=== PATIENT | female | born 1985 ===

== ENCOUNTER 2017-02-16 21:02 | Emergency (ER) | payer SELFPAY ==
[2017-02-16 21:23] VITALS: BP 135/76; PULSE 84; RESP 16; TEMP 98.3; O2SAT 99
--- NOTE | 2017-02-16 21:58 | ED PDOC ---
Lower Extremity Pain/Injury Time Seen by Provider: 02/16/17 21:39 Chief Complaint (Nursing): Lower Extremity Problem/Injury Chief Complaint (Provider): Lower Extremity Problem/Injury History Per: Patient History/Exam Limitations: no limitations Onset/Duration Of Symptoms: Days (x15) Additional Complaint(s): Barbara Rutherford, 31 year old female presents to the ED on 02/16/17 after experiencing atraumatic knee pain for 15 days prior to arrival. The patient reports worsening pain when she walks or dangles her legs. She denies any fever , chills, nausea, vomiting, recent travel, swelling, erythema, bug bites, recent outdoor activities, shortness of breath, or chest pain. Past Medical History Reviewed: Historical Data, Nursing Documentation, Vital Signs Vital Signs: Last Vital Signs Temp 98.3 F 02/16/17 21:20 Pulse 84 02/16/17 21:20 Resp 16 02/16/17 21:20 BP 135/76 02/16/17 21:20 Pulse Ox 99 02/16/17 21:20 - Medical History PMH: No Chronic Diseases - Family History Family History: States: Unknown Family Hx - Home Medications Home Medications: Ambulatory Orders Medication Instructions Recorded Dicyclomine [Bentyl] 10 mg PO QID PRN #10 cap 05/27/16 Naproxen 500 mg PO BID #30 tablet. 02/16/17 - Allergies Allergies/Adverse Reactions: Allergies Allergy/AdvReac Type Severity Reaction Status Date / Time No Known Allergies Allergy Verified 07/30/14 19:06 Review of Systems ROS Statement: Except As Marked, All Systems Reviewed And Found Negative Constitutional: Negative for: Fever, Chills Cardiovascular: Negative for: Chest Pain Respiratory: Negative for: Shortness of Breath Gastrointestinal: Negative for: Nausea, Vomiting Musculoskeletal: Positive for: Leg Pain (bilateral knee pain ). Negative for: Other (no swelling or erythema to bilateral knees) Physical Exam - Reviewed Nursing Documentation Reviewed: Yes Vital Signs Reviewed: Yes - Physical Exam Appears: Positive for: Non-toxic, No Acute Distress Head Exam: Positive for: ATRAUMATIC, NORMOCEPHALIC Extremity: Positive for: Normal ROM (to bilateral knees ), Tenderness (to superior aspect bilaterally ), Capillary Refill (good palpable/pedal pulses ), Swelling (mild swelling to bilateral knees; no warmth ). Negative for: Other ( no effusion; no skin changes) Neurologic/Psych: Positive for: Alert, Oriented (x3) - ECG O2 Sat by Pulse Oximetry: 99 (RA) Pulse Ox Interpretation: Normal - Radiology X-Ray: Interpreted by Me X-Ray Interpretation: No Acute Disease Medical Decision Making Medical Decision Making: Initial Impression: Bilateral atraumatic knee pain Initial Plan: * Knee 3 Views Bi [RAD] Stat * treatment: Xray: negative for obvious bony lesions, fx or disclocation Pt strongly advised to have pmd f/u to r/o autoimmune issues in pt who is otherwise health with atruamatic b/l knee pain. pt understands and agrees. Scribe Attestation: Documented by Ofelia Rivera, acting as a scribe for Julia Hannah PA-C. Provider Scribe Attestation: All medical record entries made by the Scribe were at my direction and personally dictated by me. I have reviewed the chart and agree that the record accurately reflects my personal performance of the history, physical exam, medical decision making, and the department course for this patient. I have also personally directed, reviewed, and agree with the discharge instructions and disposition. Disposition - Clinical Impression Clinical Impression: Knee pain - Patient ED Disposition Is Patient to be Admitted: No Counseled Patient/Family Regarding: Diagnosis, Need For Followup, Rx Given - Disposition Disposition: Routine/Home Disposition Time: 22:23 Condition: STABLE Prescriptions: Naproxen 500 mg PO BID #30 tablet. Instructions: Arthralgia (ED), Patellofemoral Pain Syndrome (ED) Print Language: LEBANESE
--- NOTE | 2017-02-17 10:08 | RAD ---
PROCEDURE: Bilateral Knee Radiographs. HISTORY: b/l knee pain./swelling a traumatic x15d COMPARISON: None. FINDINGS: BONES: Right Knee: Normal. No fracture. Left Knee: Normal. No fracture. JOINTS: Right Knee: Normal. No osteoarthritis. Left knee: Normal. No osteoarthritis. SOFT TISSUES: Right Knee: Mild soft tissue swelling Left Knee: Mild soft tissue swelling. JOINT EFFUSION: Right Knee: None. Left Knee: None. OTHER FINDINGS: None. IMPRESSION: No evidence of acute pathology in the osseous structures of the knees. Mild soft tissue swelling.
== END 2017-02-16 22:43 | disposition home or self-care (01) ==
LOC: H.ER 21:02
DX: M25.561 Pain in right knee (principal); M25.562 Pain in left knee

== ENCOUNTER 2017-10-31 08:41 | Emergency (ER) | payer OTHER ==
[2017-10-31 08:46] VITALS: TEMP 98; O2SAT 100; BMI 25.5
[2017-10-31] MEDS ORDERED: Sodium Chloride 0.9% 1,000 ML IV STA (09:25)
--- NOTE | 2017-10-31 09:28 | ED PDOC ---
HPI: Female Pain Time Seen by Provider: 10/31/17 08:50 Chief Complaint (Nursing): Female Genitourinary Chief Complaint (Provider): Vaginal bleeding History Per: Patient History/Exam Limitations: no limitations Onset/Duration Of Symptoms: Days (5) Additional Complaint(s): Pt reports vaginal bleeding X 5 days, used ~4 pads/day, LMP 10/18/17. Denies nausea, vomiting, abdominal pain, CP, SOB. Abnormal Vaginal Bleeding: Yes Past Medical History Reviewed: Nursing Documentation, Vital Signs Vital Signs: Last Vital Signs Temp 98 F 10/31/17 08:45 Pulse 94 H 10/31/17 08:45 Resp BP 114/77 10/31/17 08:45 Pulse Ox 100 10/31/17 08:45 - Medical History PMH: No Chronic Diseases - Surgical History Surgical History: No Surg Hx - Family History Family History: States: Unknown Family Hx - Living Arrangements Living Arrangements: With Family - Social History Current smoker - smoking cessation education provided: No Alcohol: None - Immunization History Hx Tetanus Toxoid Vaccination: No Hx Influenza Vaccination: No Hx Pneumococcal Vaccination: No - Home Medications Home Medications: Ambulatory Orders Medication Instructions Recorded No Known Home Med 07/19/17 - Allergies Allergies/Adverse Reactions: Allergies Allergy/AdvReac Type Severity Reaction Status Date / Time No Known Allergies Allergy Verified 07/19/17 11:22 Review of Systems Constitutional: Negative for: Fever, Chills Cardiovascular: Negative for: Chest Pain Respiratory: Negative for: Cough, Shortness of Breath Gastrointestinal: Negative for: Nausea, Vomiting, Abdominal Pain Genitourinary Female: Positive for: Vaginal Bleeding. Negative for: Dysuria, Hematuria, Vaginal Discharge, Pelvic Pain Musculoskeletal: Negative for: Back Pain Skin: Negative for: Rash, Lesions Neurological: Positive for: Dizziness. Negative for: Headache Physical Exam - Reviewed Nursing Documentation Reviewed: Yes Vital Signs Reviewed: Yes - Physical Exam Appears: Positive for: Well, No Acute Distress Skin: Positive for: Normal Color, Warm, Dry Eye Exam: Positive for: Normal appearance, EOMI, PERRL Cardiovascular/Chest: Positive for: Regular Rate, Rhythm Respiratory: Positive for: Normal Breath Sounds. Negative for: Rales, Rhonchi, Wheezing Gastrointestinal/Abdominal: Positive for: Normal Exam, Bowel Sounds, Soft. Negative for: Tenderness Back: Positive for: Normal Inspection Extremity: Positive for: Normal ROM Neurologic/Psych: Positive for: Alert, Oriented - Laboratory Results Result Diagrams: 10/31/17 10:13 10/31/17 10:13 - ECG O2 Sat by Pulse Oximetry: 100 Medical Decision Making Medical Decision Makin yo female with abnormal vaginal bleeding. - labs - pelvic ultrasound Accession No. : [id number] Patient Name / ID : ANTOINETTE RICHEY / [id number] Exam Date : 10/31/2017 11:01:40 ( Approved ) Study Comment : Sex / Age : F / 32Y Creator : Sherman Mancilla MD Dictator : Sherman Mancilla MD Box Finisher : Test Rider : Sherman Mancilla MD Approver2 : Report Date : 10/31/2017 12:06:48 My Comment : HISTORY: Menorrhagia COMPARISON: None available. TECHNIQUE: Ultrasound of the pelvis was performed using transabdominal and transvaginal technique with longitudinal and transverse projections submitted for interpretation. FINDINGS: UTERUS: Measures 6.2 x 3.5 x 4.3 cm. Uterus is normal in size with moderate anteversion noted. No fibroid or other mass lesion seen. ENDOMETRIUM: Measures 6.0 mm in diameter. Unremarkable. CERVIX: No cervical abnormality identified. RIGHT OVARY: Measures 2.7 x 1.6 x 2.6 cm. No solid mass. Normal flow. There is a likely creating follicle appreciated at the posterior margins of the right ovary measure 1.3 x 10.5 x 0.9 cm. LEFT OVARY: Measures 2.0 x 1.1 x 1.8 cm. No solid mass. Normal flow. 1.3 x 0.8 x 1.0 cm simple appearing cyst identified in the left ovary. FREE FLUID: No significant free fluid noted. OTHER FINDINGS: None. IMPRESSION: Unremarkable uterus cervix and endometrium. Probable cranium follicle right ovary with a more simple appearing cyst identified in the left ovary. Disposition - Clinical Impression Clinical Impression: Abnormal vaginal bleeding - Disposition Referrals: [facility] [Outside] [facility] [place] [Outside] Disposition: Routine/Home Disposition Time: 12:10 Condition: STABLE Instructions: Absent or Irregular Periods Forms: [facility] (Niuean) Print Language: CHINESE
[2017-10-31 10:22] LABS: BASO # 0.1 K/uL (0.0-0.2); BASO % 0.7 % (0.0-2.0); EOS % 0.3 % (0.0-4.0); LYMPH # 1.8 K/uL (1.0-4.3); LYMPH % 20.6 % (20.0-40.0); MEAN CELL VOLUME 90.4 fl (81.0-99.0); MEAN CORPUSCULAR HEMOGLOBIN 32.1 pg (27.0-31.0); MEAN CORPUSCULAR HGB CONC 35.5 g/dL (33.0-37.0); MEAN PLATELET VOLUME 7.8 fl (7.2-11.7); MONO # 0.7 K/uL (0.0-0.8); MONO % 8.6 % (0.0-10.0); NEUT # 6.1 K/uL (1.8-7.0); NEUT % 69.8 % (50.0-75.0); NRBC % 0.1 % (0.0-0.0); RBC 4.36 Mil/uL (3.80-5.20); RED CELL DISTRIBUTION WIDTH 13.2 % (11.5-14.5); WHITE BLOOD COUNT 8.7 K/uL (4.8-10.8)
[2017-10-31 10:33] LABS: PARTIAL THROMBOPLASTIN TIME 34.6 Seconds (25.6-37.1); PROTHROMBIN TIME 10.9 Seconds (9.8-13.1)
[2017-10-31 10:36] LABS: ALB/GLOB RATIO 1.2 (1.0-2.1); ALBUMIN 4.2 g/dL (3.5-5.0); ALT/SGPT 43 U/L (9-52); AST/SGOT 30 U/L (14-36); BLOOD UREA NITROGEN 11 mg/dl (7-17); CALCIUM 9.1 mg/dL (8.4-10.2); GFR AFRICAN-AMERICAN > 60; GFR NON-AFRICAN AMERICAN > 60
--- NOTE | 2017-10-31 12:08 | US ---
HISTORY: Menorrhagia COMPARISON: None available. TECHNIQUE: Ultrasound of the pelvis was performed using transabdominal and transvaginal technique with longitudinal and transverse projections submitted for interpretation. FINDINGS: UTERUS: Measures 6.2 x 3.5 x 4.3 cm. Uterus is normal in size with moderate anteversion noted. No fibroid or other mass lesion seen. ENDOMETRIUM: Measures 6.0 mm in diameter. Unremarkable. CERVIX: No cervical abnormality identified. RIGHT OVARY: Measures 2.7 x 1.6 x 2.6 cm. No solid mass. Normal flow. There is a likely creating follicle appreciated at the posterior margins of the right ovary measure 1.3 x 10.5 x 0.9 cm. LEFT OVARY: Measures 2.0 x 1.1 x 1.8 cm. No solid mass. Normal flow. 1.3 x 0.8 x 1.0 cm simple appearing cyst identified in the left ovary. FREE FLUID: No significant free fluid noted. OTHER FINDINGS: None. IMPRESSION: Unremarkable uterus cervix and endometrium. Probable cranium follicle right ovary with a more simple appearing cyst identified in the left ovary.
[2017-10-31 13:11] VITALS: BP 121/60; PULSE 78; RESP 18
== END 2017-10-31 13:13 | disposition home or self-care (01) ==
LOC: H.ER 08:41
DX: N92.0 Excessive and frequent menstruation with regular cycle (principal)
CPT/HCPCS: 76830; 76856; 80053; 81025; 85025; 85610; 85730; 99284; J7040

== ENCOUNTER 2018-07-25 21:11 | Emergency (ER) | payer SELFPAY ==
[2018-07-25 21:55] VITALS: BMI 24.2
[2018-07-25] MEDS ORDERED: Lactated Ringer's 1,000 ML IV SCH (22:00)
[2018-07-25 22:14] LABS: BASO % 0.3 % (0.0-2.0); EOS % 0.1 % (0.0-4.0); HEMOGLOBIN 12.7 g/dL (12.0-16.0); LYMPH # 0.9 K/uL (1.0-4.3); LYMPH % 6.6 % (20.0-40.0); MEAN CELL VOLUME 92.7 fl (81.0-99.0); MEAN CORPUSCULAR HEMOGLOBIN 33.2 pg (27.0-31.0); MEAN CORPUSCULAR HGB CONC 35.8 g/dL (33.0-37.0); MEAN PLATELET VOLUME 7.4 fl (7.2-11.7); MONO # 0.8 K/uL (0.0-0.8); NEUT # 12.2 K/uL (1.8-7.0); PLATELET COUNT 267 K/uL (130-400); RBC 3.84 Mil/uL (3.80-5.20); RED CELL DISTRIBUTION WIDTH 14.2 % (11.5-14.5)
[2018-07-25 22:24] LABS: ALB/GLOB RATIO 1.1 (1.0-2.1); ALBUMIN 3.5 g/dL (3.5-5.0); ALT/SGPT 22 U/L (9-52); AST/SGOT 25 U/L (14-36); BLOOD UREA NITROGEN 9 mg/dl (7-17); CALCIUM 8.8 mg/dL (8.4-10.2); GFR NON-AFRICAN AMERICAN > 60; LIPASE 122 U/L (23-300)
--- NOTE | 2018-07-25 23:04 | OBHP ---
Datetime: 07/25/2018 22:58 IP Adm Impression: , intrauterine IP Chief Complaint Other: N/V/abdominal pain IP Admit Plan: Observation/Evaluation; Discharge home Admit Comment, IP Provider: Patient is a @ 30.2 wks with N/V/abdominal pain for past 5 hours . Patient reports she ate hebrew food at 2pm and at 5 pm started to have abdominal pain and had 4 ep isodes of nausea/vomiting. No vaginal bleeding, no leaking, +FM, no contractions just generalized abd ominal discomfort. No antepartum issues, previous , no medical/surgical history, no allergies, no medication. FHR = 125 mod tanya, +accels, no decels, no contractions on monitor, VSS. CBC/CMP/lipase d rawn, pt kept NPO and given Zofran/Pepcid. IVF given. WBC = 14, pt has no fever. CMP shows dehydratio n - pt has improved symptomatically and PO challenged. Patient tolerated PO diet. Will discharge dwight ent home, labor precations given and reasons to return to hospital discussed. All questions answered. Pelvic Type - PN: Adequate Extremities - PN: Normal Abdomen - PN: Normal Back - PN: Normal Breast - PN: Normal Lungs - PN: Normal Heart - PN: Normal Thyroid - PN: Normal Neurologic - PN: Normal HEENT - PN: Normal General - PN: Normal FHR - Baseline A Provider: 125 Vital Signs Provider: Reviewed; Within Normal Limits NICHD Variability Prov Fetus A: Moderate 6-25bpm NICHD Accel Fetus A IP Provider: 15X15 NICHD Decel Fetus A IP Provider: None Genitourinary Exam: Normal DTRs - PN: Normal
--- NOTE | 2018-07-25 23:07 | OBDCSUM ---
Datetime: 07/25/2018 23:03 Discharged to, Provider: Home Follow up at, Provider: primary OB Disch Instr Activity: Normal activity Disch Instr Diet: Regular Discharge Instructions, Provider: Routine instructions given Discharge Time: 07/25/2018 23:03 Follow up in weeks, Provider: 2 wks Disch Referrals: None Contraception discussed, Prov: No Discharge Diagnosis Prov Other: N/V/abdominal pain
[2018-07-26 00:58] LABS: LYMPHOCYTE 4 % (20-50); MONOCYTE 4 % (0-10); NEUTROPHIL 92 % (42-75); PLATELET ESTIMATE NORMAL (NORMAL); TOTAL CELLS COUNTED 100
[2018-07-26 00:59] LABS: ANISOCYTOSIS SLIGHT; POIKILOCYTOSIS SLIGHT
[2018-07-26 01:00] LABS: OVALOCYTES SLIGHT; TEARDROP CELLS SLIGHT
[2018-07-26 07:04] VITALS: BP 103/48; PULSE 83; RESP 18; TEMP 98.7; O2SAT 99
== END 2018-07-25 23:45 | disposition home or self-care (01) ==
LOC: H.EROB2 21:11
DX: O26.93 Pregnancy related conditions, unspecified, third trimester (principal); R10.2 Pelvic and perineal pain; O21.0 Mild hyperemesis gravidarum; Z3A.30 30 weeks gestation of pregnancy
CPT/HCPCS: 80053; 83690; 85025; 96361; 96374; 96375; 99283; J2405; J7120

== ENCOUNTER 2018-09-24 20:02 | Inpatient (IN) | payer MEDICAID, SELFPAY ==
[2018-09-24 20:28] VITALS: BMI 25.0
[2018-09-24] MEDS ORDERED: Lactated Ringer's 1,000 ML IV ONE (20:52)
[2018-09-24] MEDS ORDERED: Oxytocin 30 UNIT 30 UNITS/500 ML BAG IV ONE (20:55)
[2018-09-24] MEDS ORDERED: OXYTOCIN/0.9 % NS 20 UNIT/1,000 ML BAG IV SCH (21:00)
[2018-09-24 21:31] LABS: BASO % 0.4 % (0.0-2.0); EOS # 0.1 K/uL (0.0-0.7); EOS % 0.7 % (0.0-4.0); HEMOGLOBIN 12.2 g/dL (12.0-16.0); LYMPH # 2.6 K/uL (1.0-4.3); MEAN CELL VOLUME 94.4 fl (81.0-99.0); MEAN CORPUSCULAR HEMOGLOBIN 32.6 pg (27.0-31.0); MEAN CORPUSCULAR HGB CONC 34.6 g/dL (33.0-37.0); MEAN PLATELET VOLUME 8.2 fl (7.2-11.7); MONO # 0.6 K/uL (0.0-0.8); MONO % 6.9 % (0.0-10.0); NEUT # 5.1 K/uL (1.8-7.0); NRBC % 0.2 % (0.0-0.0); RBC 3.75 Mil/uL (3.80-5.20); RED CELL DISTRIBUTION WIDTH 14.2 % (11.5-14.5); WHITE BLOOD COUNT 8.3 K/uL (4.8-10.8)
--- NOTE | 2018-09-24 23:03 | OBHP ---
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 Patient follows up with Dr. Langston and Dr. Crook and has chorioan gioma. Barbara LOF, VB. Irregular CTx. endorses good FM. Denies F/C/N/V/D/CP/SOB. course: chorioangioma and worsening lagging HC/BPD 2-3+ wks on US 09/16/18, for BPP/NST and IOL @ 39 wks per MFM PMHx: Denies PSHx: Denies Allergies: NKDA Medications: PNVs F/H: Non contributory Social Hx: Denies ETOH/Smoking/drugs PE GEN: NAD Chest: RRR, S1S2 present Lungs: CTAB Abdomen: +BS, NT, Gravid Ext: No pedal edema, No calf tenderness SVE: Fingertip/20%/-2 A/P: 32 y/o , 39.1 wks based on MP with DAVIDSON of 09/30/18 presents to L_D for IOL @ 39Wk for chor ioangioma -EFM and [place] monitoring - labs: GBS Neg, HIV neg, RPR, neg, GC/Chl neg, Rubella immune, HBsAg Neg, TTdap 08/05/18 -Initiate labor induction protocol -LR 999 and 125 ml/hr -SVE: Fingertip/20%/-2 -Bishops score 2 -Cervidil indution -Monitor for cervical changes Sekou Cameron, PGY1. Attending Note: Patient was discussed with the resident and I agree with the resident Pelvic Type - PN: Not Done Extremities - PN: Normal Abdomen - PN: Normal Back - PN: Normal Breast - PN: Not Done Lungs - PN: Normal Heart - PN: Normal Thyroid - PN: Not Done Neurologic - PN: Normal HEENT - PN: Normal General - PN: Normal Presentation-Admit: Vertex FHR - Baseline A Provider: 135 Contraction Comments Provider: Irregular Gestation - Est Wks by US: 39.1 IP Hx Assessment: The History has been Reviewed and is Current EGA AdmitDate IP: 39.0 IP Indication for Induction: Other IP Indication for Induction Oth: Chorioangioma IP Chief Complaint: Scheduled induction of labor NICHD Variability Prov Fetus A: Moderate 6-25bpm NICHD Accel Fetus A IP Provider: 15X15 FHR Category Provider Fetus A: Category I NICHD Decel Fetus A IP Provider: None Dilatation, Provider: Radha Effacepepper, Provider: 30% Station, Provider: -2 Genitourinary Exam: Normal DTRs - PN: Not Done
[2018-09-25] MEDS: Lactated Ringer's 1,000 ML IV SCH ×3 (02:52→19:00)
[2018-09-25] MEDS ORDERED: Oxytocin 30 UNIT 30 UNITS/500 ML BAG IV ONE (10:40)
[2018-09-25] MEDS ORDERED: Fentanyl/Bupivacaine HCl 250 ML EPI ONE (15:33)
[2018-09-25] MEDS ORDERED: Lactated Ringer's 1,000 ML IV SCH (16:15)
[2018-09-25] MEDS ORDERED: Benzocaine/Menthol SPRAY TOP PRN ×2 (20:31→23:30)
[2018-09-25] MEDS ORDERED: Oxycodone/Acetaminophen 5/325 mg Tab PO PRN ×2 (20:31→23:30)
[2018-09-26 07:37] LABS: BASO # 0.1 K/uL (0.0-0.2); BASO % 0.4 % (0.0-2.0); EOS # 0.1 K/uL (0.0-0.7); EOS % 0.7 % (0.0-4.0); HEMOGLOBIN 11.1 g/dL (12.0-16.0); LYMPH # 2.7 K/uL (1.0-4.3); LYMPH % 21.5 % (20.0-40.0); MEAN CELL VOLUME 92.7 fl (81.0-99.0); MEAN CORPUSCULAR HEMOGLOBIN 32.3 pg (27.0-31.0); MEAN CORPUSCULAR HGB CONC 34.8 g/dL (33.0-37.0); MEAN PLATELET VOLUME 7.7 fl (7.2-11.7); MONO # 0.9 K/uL (0.0-0.8); MONO % 6.7 % (0.0-10.0); NEUT % 70.7 % (50.0-75.0); RBC 3.44 Mil/uL (3.80-5.20); RED CELL DISTRIBUTION WIDTH 14.6 % (11.5-14.5); WHITE BLOOD COUNT 12.7 K/uL (4.8-10.8)
--- NOTE | 2018-09-27 10:44 | OBPPN ---
Datetime: 09/27/2018 07:20 PP Pain Prov: Within normal limits PP Flatus Prov: Yes PP BM Prov: Yes PP Breasts Prov: Not Done PP Heart Prov: Normal PP Lungs Prov: Normal PP Abdomen/Uterus Prov: Normal PP Lochia Prov: Normal PP Vulva/Perineum Prov: Not Done PP CVA Tenderness Prov: Not Done PP Extremities Prov: Normal PP C/S Incision Prov: Not Applicable PP Progress Prov: Normal PP Impression Prov: Normal progression PP Plan Prov: Discharge PP Progress Note Prov: S:32 YO s/p Vaginal delivery after IOL, today on her PPD2. Seen and examined at bedside. No complaints at this time. w/o difficulties, ambulating, tolerating PO. O: VS WNL GEN: NAD HEENT: NCAT RESP: CTA b/l, no wheezing CV: RRR, S1 S2 present normally, no murmurs. ABDM: BS+, soft, no tenderness to palpation, uterus noted firm 1 inch below umbilicus. LE: Edema 1+, no calf tenderness A/P 32 YO s/p Vaginal delivery after IOL, today on her PPD2 with normal PP progression. Plan: -Continue present management -Ambulation encouraged - encouraged -Pain management: Acetaminophen 650 PO Q4h PRN for pain -DC planning for today[facility] Albert: I have evaluated the patient independently and I agree with the above Vital Signs Provider PP: Reviewed; Within Normal Limits Datetime: 09/26/2018 07:51 PP Nausea Prov: Denies PP Comments Phys Exam Prov: see progress note
--- NOTE | 2018-09-27 10:51 | OBDCSUM ---
Datetime: 09/27/2018 07:26 Discharged to, Provider: Home Follow up at, Provider: [facility] Disch Instr Activity: Normal activity Disch Instr Diet: Regular Discharge Instructions, Provider: Routine instructions given Discharge Diagnosis, Provider: Term Delivered Discharge Time: 09/27/2018 10:00 Follow up in weeks, Provider: 4-6 weeks Disch Referrals: None Contraception discussed, Prov: Yes Disch Activity Restrictions: No sexual activity; Nothing in vagina - [place], tampons, douche Discharge Comment, Provider: Diagnosis: 32 y/o s/p of a baby boy on 09/25/2018w w/ EGA: 38.1 weeks at time of delivery : Male, Wt. 3210 gm, 9/9. Post- D/C Summary: No OB complications. No complications during post- period. Lochia i s less than menses. Pt able to pass flatus and stool, voiding well and able to ambulate. Tolerate reg ular diet w/o N/V. Fundus firm below umbilicus level. Pt is hemodynamically stable. H/H : 11.1/31.8 Discharge Instructions given to patient: Encourage PNV 1 tab PO daily May take Ibuprofen 400mg OTC Q 6h prn for mild-mod pain if needed ED precautions: If excessive bleeding, pain that does not get relief, fever >100.4, palpitations, SOB, CP or other concerning symptom go to the ED PT was urged if feeling sad, mood swing, depression, neglect of baby, suicidal thoughts, homicidal thoughts go to ER or call 911 for help Pt should go to her Primary care doctor if have difficulty with breast feeding F/U in 4-6 week for PP visit with PMD. Contraception after Delivery: Undecided
--- NOTE | 2018-09-27 13:46 | OBDS ---
DELIVERY PERSONNEL Delivery Doctor: Ervin Arellano MD Permit Technician: Kayla Goel RN Anesthesiologist: Cintia Oconnor MATERNAL INFORMATION Delivery Anesthesia: Epidural Medications in Delivery: Pitocin Estimated Blood Loss (ml): 50 Placenta Cultured: No Maternal Complications: None Provider Comments: Uncomplicated Spontaneous Delivery of a viable male infant with scores of 9 and 9, delivered in cephalic presentation in the DIANE. EBL- 200mls Placenta delivered spontaneously, placenta seemed complete and no additional tissue seen. ? 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 Patient tolerated the procedure well. LABOR SUMMARY EDC: 10/01/2018 00:00 No. Babies in Womb: 1 Attempted: No Labor Anesthesia: Epidural LABOR INFORMATION Reason for Induction: Intrauterine Growth Retardation Complete Dilatation: 09/25/2018 19:28 Cervical Ripening Agents: Cervidil Oxytocin: Augmentation Group B Beta Strep: Negative Antibiotics # of Doses: n/a Antibiotics Time of Last Dose: n/a Steroids Given: None Reason Steroids Not Administered: Not Applicable MEMBRANES Membranes Rupture Method: Artificial Rupture of Membranes: 09/25/2018 17:15 Length of Rupture (hrs): 2.38 Amniotic Fluid Color: Clear Amniotic Fluid Amount: Small Amniotic Fluid Odor: Normal STAGES OF LABOR Stage 2 hrs: 0 Stage 2 min: 10 VAGINAL DELIVERY Episiotomy: None Laceration Extension: N/A Laceration Type: None Laceration Repair: Not Applicable Initial Vag Sponge Count: 15 Final Vag Sponge Count: 15 Sponge Count Correct: Yes Sharps Count Correct: N/A BABY A INFORMATION Delivery Date/Time: 09/25/2018 19:38 Method of Delivery: Vaginal Born in Route : No : N/A Forceps: N/A Vacuum Extraction: N/A Shoulder Dystocia : No SHOULDER DYSTOCIA BABY A Delivery Date/Time: 09/25/2018 19:38 PRESENTATION/POSITION BABY A Presentation: Cephalic Cephalic Presentation: Vertex PLACENTA INFORMATION BABY A Placenta Method of Delivery: Spontaneous Placenta Status: Delivered SCORES BABY A Heart Rate 1 min: >100 bpm Resp Effort 1 min: Good Cry Reflex Irritability 1 min: Cough or Sneeze or Pulls Away Muscle Tone 1 min: Active Motion Color 1 min: Body [place], Extremities Blue Resuscitation Effort 1 min: Tactile Stimulation SCORE 1 MIN: 9 Heart Rate 5 min: >100 bpm Resp Effort 5 min: Good Cry Reflex Irritability 5 min: Cough or Sneeze or Pulls Away Muscle Tone 5 min: Active Motion Color 5 min: Body [place], Extremities Blue Resuscitation Effort 5 min: N/A SCORE 5 MIN: 9 INFANT INFORMATION BABY A Gestational Age at Delivery: 39.1 Gestational Status: Term Outcome : Liveborn Infant Condition : Stable Infant Sex: Male IDENTIFICATION/MEDS BABY A ID Band Number: [id number] ID Band Location: Left Leg; Left Arm WEIGHT/LENGTH BABY A Birthweight (gms): 3210 Weight (lb): 7 Infant Weight (oz): 1 CORD INFORMATION BABY A No. Cord Vessels: 3 Nuchal Cord : N/A Cord Blood Taken: Yes Infant Suction: None
--- NOTE | 2018-09-27 13:46 | OBPN ---
Datetime: 09/25/2018 10:36 IP Progress Impression: Normal progression of labor IP Progress Plan: Augmentation Membranes, Provider: Intact Gestation - Est Wks by US: 39.1 IP Progress Note Comment: S: Lying in bed comfortably O: SVE by Dr. Arellano 2/50%/-3 A: 32 y/o , 39.1 wks IUP P: Remove cervidi. Start pitocin 30 units: 1gm IV and titrate up 2gm every 30 minutes. Case discussed w/ xiomara Villareal. Attending Note: Vital Signs Provider: Reviewed; Within Normal Limits Dilatation, Provider: 2 Effacement, Provider: 50 Station, Provider: -3 Datetime: 09/24/2018 20:44 Contraction Comments Provider: Irregular FHR - Baseline A Provider: 135 Presentation-Admit: Vertex NICHD Accel Fetus A IP Provider: 15X15 FHR Category Provider Fetus A: Category I NICHD Variability Prov Fetus A: Moderate 6-25bpm NICHD Decel Fetus A IP Provider: None
--- NOTE | 2018-09-27 13:47 | OBADHP ---
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 Patient follows up with Dr. Langston and Dr. Crook and has chorioan gioma. Barbara LOF, VB. Irregular CTx. endorses good FM. Denies F/C/N/V/D/CP/SOB. course: chorioangioma and worsening lagging HC/BPD 2-3+ wks on US 09/16/18, for BPP/NST and IOL @ 39 wks per MFM PMHx: Denies PSHx: Denies Allergies: NKDA Medications: PNVs F/H: Non contributory Social Hx: Denies ETOH/Smoking/drugs PE GEN: NAD Chest: RRR, S1S2 present Lungs: CTAB Abdomen: +BS, NT, Gravid Ext: No pedal edema, No calf tenderness SVE: Fingertip/20%/-2 A/P: 32 y/o , 39.1 wks based on MP with DAVIDSON of 09/30/18 presents to L_D for IOL @ 39Wk for chor ioangioma -EFM and [place] monitoring - labs: GBS Neg, HIV neg, RPR, neg, GC/Chl neg, Rubella immune, HBsAg Neg, TTdap 08/05/18 -Initiate labor induction protocol -LR 999 and 125 ml/hr -SVE: Fingertip/20%/-2 -Bishops score 2 -Cervidil indution -Monitor for cervical changes Sekou Cameron, PGY1. Attending Note: Patient was discussed with the resident and I agree with the resident. Pelvic Type - PN: Not Done Extremities - PN: Normal Abdomen - PN: Normal Back - PN: Normal Breast - PN: Not Done Lungs - PN: Normal Heart - PN: Normal Thyroid - PN: Not Done Neurologic - PN: Normal HEENT - PN: Normal General - PN: Normal Presentation-Admit: Vertex FHR - Baseline A Provider: 135 Contraction Comments Provider: Irregular Gestation - Est Wks by US: 39.1 IP Hx Assessment: The History has been Reviewed and is Current IP Chief Complaint: Scheduled induction of labor NICHD Variability Prov Fetus A: Moderate 6-25bpm NICHD Accel Fetus A IP Provider: 15X15 FHR Category Provider Fetus A: Category I NICHD Decel Fetus A IP Provider: None Dilatation, Provider: Radha Effacement, Provider: 30% Station, Provider: -2 Genitourinary Exam: Normal DTRs - PN: Not Done EGA AdmitDate IP: 39.0 IP Adm Impression: Term, intrauterine ; No Active Labor IP Admit Plan: Admit to unit; Initiate labor induction protocol Datetime: 07/25/2018 22:58 IP Chief Complaint Other: N/V/abdominal pain Vital Signs Provider: Reviewed; Within Normal Limits
[2018-09-27 16:57] VITALS: BP 105/60; PULSE 66; RESP 18; TEMP 98.7; O2SAT 99
== END 2018-09-27 12:30 | disposition home or self-care (01) | DRG 560 ==
LOC: H.EROB2 20:02 → EDSTATUS 20:16 → H.L&D 20:52 → H.OB/GYN 09-25 23:21
PROVIDERS: ADMIT Obstetrics & Gynecology; ATTEND Obstetrics & Gynecology
PROC: 10E0XZZ Delivery of Products of Conception, External Approach (ICD-10-PCS; principal; 2018-09-24)
PROC: 4A1HXCZ Monitoring of Products of Conception, Cardiac Rate, External Approach (ICD-10-PCS; 2018-09-24)
DX: O36.5930 Maternal care for other known or suspected poor fetal growth, third trimester, not applicable or unspecified (principal); D25.9 Leiomyoma of uterus, unspecified; Z37.0 Single live birth; Z3A.39 39 weeks gestation of pregnancy; O34.13 Maternal care for benign tumor of corpus uteri, third trimester